=== PATIENT | male | born 1975 | race Caucasian/White ===

== ENCOUNTER 2018-02-13 12:46 | Emergency (ER) | payer SELFPAY ==
[2018-02-13 12:53] VITALS: BP 118/85
[2018-02-13] MEDS ORDERED: BENADRYL PO ONE (14:37)
[2018-02-13] MEDS ORDERED: ZOFRAN ODT PO ONE (15:01)
[2018-02-13] MEDS ORDERED: MOTRIN PO ONE (15:01)
--- NOTE | 2018-02-13 15:01 | Emergency Department Report ---
Blank Doc - Documentation Documentation: Patient is a 42-year-old male who is presented with left sided headache and feels like it is pulling sensation behind his eye and some radiation into the left side of his head. He states his dizziness nausea and photophobia. Patient does not have a history of headaches but his mother did have migraines. Patient also complains some lower back pain. He states he woke up the pain several days ago denies any dysuria or urinary frequency. No hematuria or diarrhea. Brief physical exam patient's eye within normal limits as well as his physical appearance. Because this is a new onset headache. Patient will be taken to CT for evaluation of his brain and will be given meds for symptomatic relief be reassessed is
--- NOTE | 2018-02-13 16:19 | Emergency Department Report ---
ED Headache HPI - General Chief Complaint: Headache Stated Complaint: PAIN IN RIGHT SIDE Time Seen by Provider: 02/13/18 14:52 - History of Present Illness Initial Comments: Patient is a 42-year-old male who is presented with left sided headache and feels like it is pulling sensation behind his eye and some radiation into the left side of his head. He states his dizziness nausea and photophobia. Patient does not have a history of headaches but his mother did have migraines. Patient also complains some lower back pain. He states he woke up the pain several days ago denies any dysuria or urinary frequency. No hematuria or diarrhea. Allergies/Adverse Reactions: Allergies No Known Allergies Allergy (Unverified 02/13/18 12:53) ED Review of Systems ROS: Stated complaint: PAIN IN RIGHT SIDE Other details as noted in HPI ED Past Medical Hx - Past Medical History Previous Medical History?: Yes Additional medical history: "ulcers" - Surgical History Past Surgical History?: No - Social History Smoking Status: Current Some Day Smoker Substance Use Type: None ED Physical Exam - General Limitations: No Limitations ED Course Vital Signs 02/13/18 12:50 Temperature 98.4 F Pulse Rate 105 H Respiratory 16 Rate Blood Pressure 118/85 O2 Sat by Pulse 95 Oximetry Critical care attestation.: If time is entered above; I have spent that time in minutes in the direct care of this critically ill patient, excluding procedure time. ED Disposition Condition: Stable Referrals: PRIMARY CARE, [Primary Care Provider] - 3-5 Days
== END 2018-02-13 15:30 ==
LOC: ED 12:46
DX: R51 Headache (principal); R42 Dizziness and giddiness; R11.0 Nausea; M54.5 Low back pain
CPT/HCPCS: 99281; Q0162